=== PATIENT | male | born 1955 | race Caucasian/White ===

== ENCOUNTER 2019-11-06 18:43 | Emergency (ER) | payer SELFPAY ==
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
[2019-11-06] MEDS ORDERED: Adacel Vial IM ONE ×2 (19:17→19:21)
[2019-11-06] MEDS ORDERED: BACIGUENT PACKET ONE (19:22)
[2019-11-06] MEDS ORDERED: BACIGUENT PACKET TP ONE (19:23)
[2019-11-06] MEDS ORDERED: NORCO 5/325 MG PO ONE (21:44)
[2019-11-06] MEDS ORDERED: NORCO 5/325 MG ONE (21:51)
[2019-11-06 22:11] VITALS: BP 140/87; PULSE 80; O2SAT 96
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
== END 2019-11-06 22:10 | disposition home or self-care (01) ==
LOC: ED 18:43
DX: S80.812A Abrasion, left lower leg, initial encounter (principal); R10.2 Pelvic and perineal pain; T14.8XXA Other injury of unspecified body region, initial encounter; V89.2XXA Person injured in unspecified motor-vehicle accident, traffic, initial encounter; Y93.9 Activity, unspecified; Y92.9 Unspecified place or not applicable; Z86.718 Personal history of other venous thrombosis and embolism; Z79.02 Long term (current) use of antithrombotics/antiplatelets
CPT/HCPCS: 36000; 70450; 70486; 72125; 72170; 90471; 90715; 99285; 99291; A9270-GY